=== PATIENT | female | born 1950 | race African-American/Black ===

== ENCOUNTER 2021-08-18 14:15 | Inpatient (IN) | payer OTHER ==
[2021-08-18 15:06] VITALS: BMI 25.9
[2021-08-18] MEDS ORDERED: MAGNESIUM CITRATE 300 ML BOTTLE PO PRN (15:40)
[2021-08-18] MEDS ORDERED: BISMUTH SUBSALICYLATE 524 MG/30 ML PO PRN (15:40)
[2021-08-18] MEDS ORDERED: ONDANSETRON *ODT* 4 MG TABLET SL PRN (15:40)
[2021-08-18] MEDS ORDERED: IBUPROFEN 400 MG TABLET (FP) PO PRN (15:40)
[2021-08-18] MEDS ORDERED: MAGNESIUM HYDROX 2400MG/30ML ORAL SUSPENSION 30 ML CUP PO PRN (15:40)
[2021-08-18] MEDS ORDERED: ACETAMINOPHEN 325 MG TABLET (FP) PO PRN ×2 (15:40)
[2021-08-18] MEDS ORDERED: MAG HYDROX/AL HYDROX/SIMETH 30 ML UNIT-DOSE CUP PO PRN (15:40)
[2021-08-18] MEDS ORDERED: hydrOXYzine PAMOATE 25 MG CAPSULE (FP) PO PRN (15:40)
[2021-08-18] MEDS ORDERED: MENTHOL/PHENOL 1 EACH UD MM PRN (15:40)
[2021-08-18] MEDS ORDERED: LOPERAMIDE HCL 2 MG CAPSULE PO PRN (15:40)
[2021-08-18] MEDS ORDERED: MELATONIN 5 MG TABLETS PO PRN (15:40)
[2021-08-18] MEDS: THIAMINE HCL 100 MG TABLET (FP) PO SCH (22:52)
[2021-08-19] MEDS: PRENATAL VITAMINS W/ FOLIC ACID TABLET (FP) PO SCH (10:34)
[2021-08-19 12:12] LABS: HEMATOCRIT 36.6 % (32.4-45.2); HEMOGLOBIN 11.6 GM/dL (10.7-15.3); MCH 25.5 pg (25.7-33.7); MCHC 31.8 g/dl (32.0-36.0); MEAN CELL VOLUME 80.5 fl (80-96); PLATELET COUNT 195 10^3/uL (134-434); RBC 4.54 M/mm3 (3.60-5.2); RDW 16.4 % (11.6-15.6); WHITE BLOOD COUNT 5.4 K/mm3 (4.0-10.0)
[2021-08-19 12:22] LABS: CALCIUM 8.7 mg/dL (8.5-10.1)
[2021-08-19 12:23] LABS: BLOOD UREA NITROGEN 19.6 mg/dL (7-18)
[2021-08-19 12:26] LABS: CREATININE 1.3 mg/dL (0.55-1.3)
[2021-08-19 12:29] LABS: BILIRUBIN,TOTAL 0.5 mg/dL (0.2-1); TOT PROT 6.7 g/dl (6.4-8.2)
[2021-08-19] MEDS: THIAMINE HCL 100 MG TABLET (FP) PO SCH (22:12)
[2021-08-19] MEDS: NICOTINE 10 MG CARTRIDGE (INHALER) IH PRN (22:13)
[2021-08-20 10:00] VITALS: BP 140/68; PULSE 76; TEMP 98.1
[2021-08-20] MEDS: PRENATAL VITAMINS W/ FOLIC ACID TABLET (FP) PO SCH (10:17)
[2021-08-20] MEDS: NICOTINE 10 MG CARTRIDGE (INHALER) IH PRN (10:22)
== END 2021-08-20 12:04 | disposition home or self-care (01) | DRG 897 ==
LOC: YASAS 14:15 → UNDOADMIN 16:04 → Y6N 16:04
PROVIDERS: ADMIT Allergy & Immunology; ATTEND Allergy & Immunology
PROC: HZ2ZZZZ Detoxification Services for Substance Abuse Treatment (ICD-10-PCS; principal; 2021-08-18)
DX: F11.23 Opioid dependence with withdrawal (principal); F10.230 Alcohol dependence with withdrawal, uncomplicated; F17.213 Nicotine dependence, cigarettes, with withdrawal; I10 Essential (primary) hypertension; E11.9 Type 2 diabetes mellitus without complications; Z79.84 Long term (current) use of oral hypoglycemic drugs
CPT/HCPCS: 36415; 80053; 82962; 85027; 86780; 87811; C9803-CS; U0003; U0005